=== PATIENT | male | born 1955 | race Caucasian/White ===

== ENCOUNTER 2016-10-29 17:50 | Emergency (ER) | payer OTHER ==
[~2016-10-29] VITALS: Ht 167.6 cm; Wt 80.0 kg
[~2016-10-29 17:50] MED LIST: AUGM500T7 OR; CEPH500C3 PO; CLOP75 PO; NEOMYCIN RIGHT EAR; SIMV5TAB32 PO; TOPR25TA2 PO; [UNRECOGNIZED DRUG - OTHER] RIGHT EAR
[2016-10-29 17:53] VITALS: BP 135/76; PULSE 104; RESP 18; TEMP 99; O2SAT 96
--- NOTE | 2016-10-29 17:58 | PD ---
Physical Exam Date Seen by Provider: Oct 29, 2016 Time Seen by Provider: 17:57 Narrative 61 yo male here for evaluation of lower lip edema. Recently put on lisinopril. Going on since today. No SOB. no pain. In no acute distress. Has abdominal pain as well going on since today. Pain is 6/10. Vitals are stable in triage. Awaiting bed placement. Data Data Last Documented VS Vital Signs Date Time Temp Pulse Resp B/P Pulse Ox O2 Delivery O2 Flow Rate FiO2 10/29/16 17:53 99.0 104 18 135/76 96 Room Air [facility] Medical Record Reviewed: Yes Supervised Visit with ZURDO: No Herbert Nunez Oct 29, 2016 17:58
--- NOTE | 2016-10-29 18:07 | PD ---
HPI . lip swelling and abdominal pain x 1 day Chief Complaint: Allergic/Adverse Reaction Time Seen by Provider: 18:07 Travel History International Travel<30 days: No Contact w/Intl Traveler<30days: No Traveled to known affect area: No History of Present Illness HPI 61-year-old male with history of hypertension here with complaints of lip swelling and abdominal pain for 1 day. Patient was put on lisinopril approximately 8 days ago and tells me that all of a sudden this morning his lower lip started swelling. Patient denies any shortness of breath, dysphasia or airway compromise. He also reports that he had a sudden onset of left upper quadrant abdominal pain that started out of the blue. He reports the pain is approximately 8/10 at peak. He tried taking his regular protonix, but did not get any relief. He admits to one episode of vomiting this morning with some nausea, however that has since resolved. He denies any bowel or bladder changes. He admits to drinking alcohol roughly 2-3 beers per day. He has no other complaints. PFSH Past Medical History Hypertension: Yes Social History Alcohol Use: Yes Tobacco Use: No Substance Use: No Allergies-Medications (Allergen,Severity, Reaction): Coded Allergies: Lisinopril (Verified Allergy, Severe, ANGIOEDEMA, 10/29/16) Reported Meds & Prescriptions Reported Meds & Active Scripts Active Medrol Dosepak (Methylprednisolone) 4 Mg Dspk 4 Mg PO DIRECTED Per Pharmacist direction Augmentin 500MG/125MG (Amoxicillin/Clavulanate Potassium) 500 Mg Tab 500 Mg OR Q12 10 Days Reported [Neomycin/Polymixin] 1 Drop RIGHT EAR DIRECTED Keflex (Cephalexin Monohydrate) 500 Mg Cap 500 Mg PO Q6 Toprol Xl (Metoprolol Succinate) 25 Mg Tabcr 0 PO DAILY UNKNOWN DOSE Plavix (Clopidogrel Bisulfate) 75 Mg Tab 75 Mg PO DAILY Zocor (Simvastatin) 5 Mg Tab 0 PO DAILY UNKNOWN DOSE Review of Systems General / Constitutional: No: Fever Eyes: No: Visual changes HENT: No: Headaches Cardiovascular: No: Chest Pain or Discomfort Respiratory: No: Shortness of Breath Gastrointestinal: Positive: Abdominal Pain (LUQ) Genitourinary: No: Dysuria Musculoskeletal: No: Pain Skin: Positive Other (angioedema), No Rash Neurologic: No: Weakness Psychiatric: No: Depression Endocrine: No: Polydipsia Hematologic/Lymphatic: No: Easy Bruising Physical Exam Narrative GENERAL: AAO x 3, no acute distress, Well-nourished, well-developed patient. SKIN: Warm and dry. angioedema present HEAD: Normocephalic and atraumatic. EYES: No scleral icterus. No injection or drainage. EOM intact, PERRLA ENT: No nasal drainage noted. Mucous membranes pink. Airway patent. no posterior pharynx edema NECK: Supple, trachea midline. No JVD. no lymphadenopathy CARDIOVASCULAR: Regular rate and rhythm without murmurs, gallops, or rubs. RESPIRATORY: Breath sounds equal bilaterally. No accessory muscle use. No rhonchi or rales. GASTROINTESTINAL: Abdomen soft, non-tender, nondistended. no rebound or guarding , no Cool's or McBurney point tenderness EXTREMITIES: No cyanosis or edema. BACK: No obvious deformity. NEURO: CN II-12 intact, technical support representative strength normal b/l, UE and LE 5/5, no focal deficits PSYCH: AAO x 3, normal affect. Data Data Last Documented VS Vital Signs Date Time Temp Pulse Resp B/P Pulse Ox O2 Delivery O2 Flow Rate FiO2 10/29/16 18:17 103 10/29/16 18:11 20 153/82 95 Room Air 10/29/16 17:53 99.0 Orders Complete Blood Count With Diff (10/29/16 18:12) Comprehensive Metabolic Panel (10/29/16 18:12) Lipase (10/29/16 18:12) Prothrombin Time / Inr (Pt) (10/29/16 18:12) Act Partial Throm Time (Ptt) (10/29/16 18:12) Iv Access Insert/Monitor (10/29/16 18:12) Ecg Monitoring (10/29/16 18:12) Oximetry (10/29/16 18:12) Sodium Chloride 0.9% Flush (Ns Flush) (10/29/16 18:15) Electrocardiogram (10/29/16 ) Labs Laboratory Tests Test 10/29/16 18:10 White Blood Count 13.6 TH/MM3 Red Blood Count 5.20 MIL/MM3 Hemoglobin 15.2 GM/DL Hematocrit 44.2 % Mean Corpuscular Volume 85.0 FL Mean Corpuscular Hemoglobin 29.2 PG Mean Corpuscular Hemoglobin 34.3 % Concent Red Cell Distribution Width 13.2 % Platelet Count 284 TH/MM3 Mean Platelet Volume 8.5 FL Neutrophils (%) (Auto) 59.0 % Lymphocytes (%) (Auto) 33.5 % Monocytes (%) (Auto) 5.8 % Eosinophils (%) (Auto) 1.2 % Basophils (%) (Auto) 0.5 % Neutrophils # (Auto) 8.0 TH/MM3 Lymphocytes # (Auto) 4.6 TH/MM3 Monocytes # (Auto) 0.8 TH/MM3 Eosinophils # (Auto) 0.2 TH/MM3 Basophils # (Auto) 0.1 TH/MM3 CBC Comment DIFF FINAL Differential Comment Prothrombin Time 10.3 SEC Prothromb Time International 0.9 RATIO Ratio Activated Partial 25.3 SEC Thromboplast Time Sodium Level 136 MEQ/L Potassium Level 4.0 MEQ/L Chloride Level 104 MEQ/L Carbon Dioxide Level 22.4 MEQ/L Anion Gap 10 MEQ/L Blood Urea Nitrogen 17 MG/DL Creatinine 1.08 MG/DL Estimat Glomerular Filtration 70 ML/MIN Rate Random Glucose 145 MG/DL Calcium Level 10.3 MG/DL Total Bilirubin 0.6 MG/DL Aspartate Amino Transf 18 U/L (AST/SGOT) Alanine Aminotransferase 26 U/L (ALT/SGPT) Alkaline Phosphatase 102 U/L Total Protein 8.2 GM/DL Albumin 4.4 GM/DL Lipase 243 U/L MDM Medical Decision Making Medical Screen Exam Complete: Yes Emergency Medical Condition: Yes Medical Record Reviewed: Yes Differential Diagnosis angioedema due to RENITA inhibitor, allergic reaction, less likely anaphylactic reaction, pancreatitis, GERD, less likely colitis, less likely diverticulitis Narrative Course 61-year-old male here with complaints of lip swelling. Patient recently started lisinopril. He also reports a sudden onset of abdominal pain since this morning. On examination there are no abnormal findings. Abdominal examination is benign. Labs have been ordered. Case discussed with Dr. Gonzalez. EKG is unremarkable. I have discussed all results with the patient. I go in to further discuss his abdominal pain and patient says it is more of a discomfort. It is not present at this moment. I do not believe he has an acute abdomen that is surgical. EKG is unremarkable. I recommend outpatient f/u if his symptoms persist, or if it worsens to return to the ED. I have provided him some prednisone upon discharge. He has also been instructed that he could use [id number] Pepcid or Benadryl. I provided the patient with solumedrol and pepcid prior to discharge. Patient verbalized understanding of instructions, questions were answered, and thanked me for their care. I advised them if their condition worsens, please return to the nearest emergency room for further care. Diagnosis Primary Impression: RENITA inhibitor-aggravated angioedema Qualified Code: T78.3XXA - RENITA inhibitor-aggravated angioedema, initial encounter Additional Impression: Abdominal discomfort Patient Instructions: General Instructions Additional Instructions: Please return to emergency department if your symptoms return or worsen. Follow up with your primary care provider. Take medications as prescribed. You can try [id number] Pepcid once daily. you can also try some Benadryl as directed. Scripts Methylprednisolone Dosepak (Medrol Dosepak)4 Mg Dspk4 Mg PO DIRECTED #1 DSPK Ref 0 Per Pharmacist direction Prov:Jose Holt MD 10/29/16 Disposition: 01 DISCHARGE HOME Condition: Stable Janeth Roque Oct 29, 2016 18:07
[2016-10-29 18:11] VITALS: BP 153/82; PULSE 100; RESP 20; O2SAT 95
[2016-10-29] MEDS ORDERED: SODIUM CHLORIDE 0.9% FLUSH 10 ML FLUSH IV FLUSH PRN (18:15)
[2016-10-29 18:17] VITALS: PULSE 103
[2016-10-29 18:56] LABS: APTT (PATIENT) 25.3 SEC (24.3-30.1); INTERNATIONAL NORMALIZED RATIO 0.9 RATIO; PROTHROMBIN TIME - PATIENT 10.3 SEC (9.8-11.6)
[2016-10-29 19:04] LABS: ALT (GPT) 26 U/L (12-78); ANION GAP 10 MEQ/L (5-15); AST (GOT) 18 U/L (15-37); BICARBONATE 22.4 MEQ/L (21.0-32.0); BLOOD UREA NITROGEN 17 MG/DL (7-18); CHLORIDE 104 MEQ/L (98-107); GLOMERULAR FILTRATION RATE 70 ML/MIN (>89); SODIUM (NA) 136 MEQ/L (136-145)
[2016-10-29 19:07] LABS: ALKALINE PHOSPHATASE 102 U/L (45-117); BASOPHIL # 0.1 TH/MM3 (0-0.2); BASOPHIL % 0.5 % (0.0-2.0); EOSINOPHIL # 0.2 TH/MM3 (0-0.4); EOSINOPHIL % 1.2 % (0.0-4.0); HEMATOCRIT 44.2 % (39.0-51.0); HEMO FLAGS DIFF FINAL; LYMPH % 33.5 % (9.0-44.0); LYMPHOCYTE # 4.6 TH/MM3 (1.0-4.8); MEAN CORPUSCULAR HEMOGLOBIN 29.2 PG (27.0-34.0); MEAN CORPUSCULAR HGB CONC 34.3 % (32.0-36.0); MONO % 5.8 % (0.0-8.0); PLATELET COUNT 284 TH/MM3 (150-450); RED CELL DISTRIBUTION WIDTH 13.2 % (11.6-17.2); TOTAL BILIRUBIN ADULT 0.6 MG/DL (0.2-1.0); WHITE BLOOD COUNT 13.6 TH/MM3 (4.0-11.0)
[2016-10-29] MEDS ORDERED: MEDR4PAK PO (19:56)
[2016-10-29] MEDS ORDERED: methylPREDNISolone SOD SUCC 125 MG/2 ML VIAL IV PUSH ONE (21:15)
[2016-10-29] MEDS ORDERED: FAMOTIDINE 20 MG TAB PO ONE (21:15)
[2016-10-29 21:24] VITALS: BP 144/71
--- NOTE | 2016-10-30 19:15 | EKG ---
Date Performed: 10/29/2016 Time Performed: 20:09:53 PTAGE: 61 years EKG: Sinus rhythm NORMAL ECG NO PREVIOUS TRACING DOCTOR: Jewel Vera Interpretating Date/Time 10/30/2016 19:13:12
== END 2016-10-29 21:14 | disposition home or self-care (01) ==
LOC: NEPC 17:50
DX: T78.3XXA Angioneurotic edema, initial encounter (principal); R10.12 Left upper quadrant pain; I10 Essential (primary) hypertension
CPT/HCPCS: 80053; 83690; 85025; 85610; 85730; 93005; 96374; 99284; J2930

== ENCOUNTER 2017-04-02 10:54 | Emergency (ER) | payer OTHER ==
[~2017-04-02] VITALS: Ht 172.7 cm; Wt 82.0 kg
[~2017-04-02 10:54] MED LIST changes: +MEDR4PAK PO
[2017-04-02 10:56] VITALS: BP 174/79; PULSE 95; RESP 18; TEMP 98.3; O2SAT 97
[2017-04-02] MEDS ORDERED: SIMV40TA PO (11:09)
[2017-04-02] MEDS ORDERED: PANT40TA3 PO (11:09)
[2017-04-02] MEDS ORDERED: METO1TAB42 PO (11:10)
[2017-04-02] MEDS ORDERED: CLOP75TA PO (11:10)
[2017-04-02] MEDS ORDERED: RESP: ALBUTEROL 2.5 MG/IPRATROPIUM 0.5 MG NEB (SCH) INH ONE (11:15)
[2017-04-02] MEDS ORDERED: predniSONE 20 MG TAB PO ONE (11:15)
--- NOTE | 2017-04-02 11:25 | PD ---
HPI Chief Complaint: Cold / Flu Symptoms Time Seen by Provider: 11:04 Travel History International Travel<30 days: No Contact w/Intl Traveler<30days: No Traveled to known affect area: No History of Present Illness HPI 62-year-old [place] male presents to the emergency Department with a day history of worsening bronchitis type symptoms, as well as sinus congestion and headache. Patient does smoke 2 cigars a day, but is "cutting back". Patient denies chest pain or nausea or vomiting. Patient has had on and off sore throat, as well as ear congestion with change in hearing in the right. He denies ear pain specifically. Patient states his cough is nonproductive. He states is worse at night when he lays down. Patient is allergic to lisinopril. PFSH Past Medical History Cardiac Catheterization: Yes (x2 stents) High Cholesterol: Yes GERD: Yes Hypertension: Yes Social History Alcohol Use: Yes (couple beers per day) Tobacco Use: Yes (2-3 cigars per day) Substance Use: No Allergies-Medications (Allergen,Severity, Reaction): Coded Allergies: lisinopril (Unverified Allergy, Severe, ANGIOEDEMA, 04/02/17) Reported Meds & Prescriptions Reported Meds & Active Scripts Active Reported Metoprolol Succinate ER 24 HR (Metoprolol Succinate) 25 Mg Tab 25 Mg PO DAILY Clopidogrel (Clopidogrel Bisulfate) 75 Mg Tab 75 Mg PO DAILY Pantoprazole (Pantoprazole Sodium) 40 Mg Tab 40 Mg PO DAILY Simvastatin 40 Mg Tab 40 Mg PO HS Review of Systems Except as stated in HPI: all other systems reviewed are Neg General / Constitutional: No: Fever Eyes: No: Visual changes HENT: Positive: Headaches, Rhinitis, Rhinorrhea, Congestion, Earache, No: Vertigo (congestion), Lightheadedness, Sore Throat, Nosebleed, Neck Stiffness, Neck Pain, Dental Difficulties, Ear Discharge Cardiovascular: No: Chest Pain or Discomfort Respiratory: Positive: Cough, Shortness of Breath, Wheezing, No: Sneezing, Orthopnea, Hemoptysis, Night Sweats, Pleuritic Pain Gastrointestinal: No: Nausea, Vomiting, Abdominal Pain Genitourinary: No: Dysuria Musculoskeletal: No: Pain Skin: No Rash Neurologic: No: Weakness Psychiatric: No: Depression Endocrine: No: Polydipsia Hematologic/Lymphatic: No: Easy Bruising Physical Exam Narrative GENERAL: Patient appears in no obvious distress. SKIN: Warm and dry. Color. Normal turgor. No rash. HEAD: Atraumatic. Normocephalic. EYES: Pupils equal and round. No scleral icterus. No injection or drainage. ENT: No nasal bleeding or discharge. Mucous membranes pink and moist. NECK: Trachea midline. No JVD. CARDIOVASCULAR: Regular rate and rhythm. RESPIRATORY: No accessory muscle use. Coarse breath sounds to auscultation. No rhonchi or rales. Breath sounds equal bilaterally. GASTROINTESTINAL: Abdomen soft, non-tender, nondistended. Hepatic and splenic margins not palpable. MUSCULOSKELETAL: Extremities without clubbing, cyanosis, or edema. No obvious deformities. She has pain with palpation along the right lower lumbar spine with mild positive straight leg raise pain. His no weakness. Deep tendon reflexes are intact bilaterally. NEUROLOGICAL: Awake and alert. No obvious cranial nerve deficits. Motor grossly within normal limits. Five out of 5 muscle strength in the arms and legs. Normal speech. PSYCHIATRIC: Appropriate mood and affect; insight and judgment normal. Data Data Last Documented VS Vital Signs Date Time Temp Pulse Resp B/P (MAP) Pulse Ox O2 Delivery O2 Flow Rate FiO2 04/02/17 11:10 18 04/02/17 10:56 98.3 95 174/79 (110) 97 Room Air Orders Orders Albuterol-Ipratropium Neb (Duoneb Neb) (04/02/17 11:15) Prednisone (Deltasone) (04/02/17 11:15) MDM Medical Decision Making Medical Screen Exam Complete: Yes Emergency Medical Condition: Yes Differential Diagnosis Sinusitis. Bronchitis. Postnasal drip. COPD with exacerbation. Narrative Course Patient is given DuoNeb 1. Patient given prednisone 20 mg by mouth. Patient will be continued on prednisone 20 mg twice a day for 5 days. Patient is given Ventolin 2 puffs every 4-6 hours when necessary shortness of breath or cough. Patient is given azithromycin 500 mg daily 5 days. Patient is given Flonase nasal spray 2 sprays each nostril daily. Patient is to follow with his primary care physician next week to ensure resolution. Diagnosis Primary Impression: Acute wheezy bronchitis Additional Impression: Sinusitis Qualified Codes: J01.40 - Acute pansinusitis, unspecified Referrals: Primary Care Physician Patient Instructions: Acute Bronchitis (ED), General Instructions Additional Instructions: Patient is given DuoNeb 1. Patient given prednisone 20 mg by mouth. Patient will be continued on prednisone 20 mg twice a day for 5 days. Patient is given Ventolin 2 puffs every 4-6 hours when necessary shortness of breath or cough. Patient is given azithromycin 500 mg daily 5 days. Patient is given Flonase nasal spray 2 sprays each nostril daily. Patient is to follow with his primary care physician next week to ensure resolution. Med/Other Pt SpecificInfo: Prescription(s) given Disposition: 01 DISCHARGE HOME Condition: Stable Christiano Foster Apr 02, 2017 11:25
[2017-04-02] MEDS ORDERED: VENTAER INH (11:26)
[2017-04-02] MEDS ORDERED: PRED20 PO (11:26)
[2017-04-02] MEDS ORDERED: FLUT1SPR5 EACH NARE (11:26)
[2017-04-02] MEDS ORDERED: AZIT500T2 PO (11:26)
== END 2017-04-02 12:11 | disposition home or self-care (01) ==
LOC: NEPD 10:54
DX: J20.9 Acute bronchitis, unspecified (principal); J01.40 Acute pansinusitis, unspecified; E78.00 Pure hypercholesterolemia, unspecified; K21.9 Gastro-esophageal reflux disease without esophagitis; I10 Essential (primary) hypertension; F17.290 Nicotine dependence, other tobacco product, uncomplicated
CPT/HCPCS: 94664; 99283; J7512